=== PATIENT | female | born 1970 | race Caucasian/White ===

== ENCOUNTER 2018-04-14 08:04 | Emergency (ER) | payer OTHER ==
[2018-04-14 08:11] VITALS: BP 132/77; PULSE 95; TEMP 98.3; BMI 29.7
--- NOTE | 2018-04-14 08:13 | PDOC ---
History of Present Illness - General Chief Complaint: Injury Stated Complaint: RIGHT FOOT INJURY Time Seen by Provider: 04/14/18 08:08 - History of Present Illness Initial Comments: 04/14/18 08:14 Chief complaint: Right foot injury History of present illness: Patient dropped a heavy bowl on her right foot last night. Pain and difficulty ambulating today. Pain is localized to the great toe , and the second through the fourth MTPJ's. Review of systems: Patient did not fall. No other injuries including injuries to the head neck chest abdomen spine pelvis or other extremities. No injury to the forfoott or the ankle. Past medical history: Hysterectomy, oophorectomy, with one ovary still remaining. On hormone replacement. Otherwise negative Social/family history reviewed and noncontributory Physical exam: Alert and oriented well-developed well-nourished no acute distress at rest. Using crutches for ambulation due to pain with weightbearing right foot Afebrile, vital signs normal Right foot: There is swelling and erythema of the distal phalanx, great toe. The toe appears angulated laterally, but the patient states that this is at usual appearance. There is minimal subungual hematoma less than 25%, and no skin break, abrasion, or laceration. There is also mild tenderness over the second through fourth MTPJ's, without swelling or deformity. Pulses are full. No distal sensory or motor deficits. No sign of injury to the forefoot, ankle, calf, or knee. Impression: Crush injury, rule out fracture of the great toe or other phalanges Plan: X-ray and further orthopedic management depending on results. Past History - Past Medical History Allergies/Adverse Reactions: Allergies Allergy/AdvReac Type Severity Reaction Status Date / Time No Known Allergies Allergy Verified 04/14/18 08:06 Home Medications: Ambulatory Orders Tamsulosin HCl [Flomax] 0.4 mg PO DAILY 04/14/18 COPD: No Disorders: Yes - Suicide/Smoking/Psychosocial Hx Smoking History: Never smoked Hx Alcohol Use: Yes (occasional) Drug/Substance Use Hx: No Substance Use Type: None *Physical Exam - Vital Signs Last Vital Signs Temp Pulse Resp BP Pulse Ox 98.3 F 95 H 18 132/77 100 04/14/18 08:05 04/14/18 08:05 04/14/18 08:05 04/14/18 08:05 04/14/18 08:05 Medical Decision Making - Medical Decision Making 04/14/18 09:03 X-ray shows a possible small cortical defect, dorsum of the great toe, in the area of swelling and tenderness. This is most evident on the lateral view, but is probably also present on the AP. There is no displacement, comminution, or obvious rotation. Plan: Thanh taped with interdigital gauze to prevent skin maceration. Rest ice and elevate. Advil or Aleve. Orthopedic follow-up in 2 weeks if pain or swelling persists. Patient adequately ambulatory upon discharge to follow-up as directed. *DC/Admit/Observation/Transfer Diagnosis at time of Disposition: Fractured great toe Qualifiers: Encounter type: initial encounter Fracture type: closed Phalanx: distal Fracture alignment: nondisplaced Laterality: right Qualified Code(s): S92.424A - Nondisplaced fracture of distal phalanx of right great toe, initial encounter for closed fracture - Discharge Dispostion Disposition: HOME Condition at time of disposition: Improved Decision to Admit order: No - Referrals Referrals: Rob Wolff MD [Staff Physician] - 14 days - Patient Instructions Printed Discharge Instructions: DI for Toe Fracture - Post Discharge Activity Forms/Work/School Notes: Back to Work
== END 2018-04-14 09:17 | disposition home or self-care (01) ==
LOC: FER 08:04
PROC: 2W3UXYZ Immobilization of Right Toe using Other Device (ICD-10-PCS; principal; 2018-04-14)
DX: S92.424A Nondisplaced fracture of distal phalanx of right great toe, initial encounter for closed fracture (principal); W20.8XXA Other cause of strike by thrown, projected or falling object, initial encounter; Y93.89 Activity, other specified; Y92.89 Other specified places as the place of occurrence of the external cause
CPT/HCPCS: 73630-TC-RT-FY; 99281-25